=== PATIENT | female | born 1960 | race Caucasian/White ===

== ENCOUNTER 2017-08-02 07:55 | Emergency (ER) | payer SELFPAY ==
[~2017-08-02] VITALS: Ht 165.1 cm; Wt 71.2 kg
[~2017-08-02 07:55] MED LIST: LISI-420 PO; METF850T PO; METF850T4 PO; MIC5 PO; SIMV40TA1 PO; SITA100T8 PO
[2017-08-02 08:05] VITALS: BP 117/73
--- NOTE | 2017-08-02 08:12 | NUR ---
PATIENT AMBULATED TO BED 4.
--- NOTE | 2017-08-02 08:17 | NUR ---
REPORT GIVEN TO AUNDREA FIGUEROA
--- NOTE | 2017-08-02 08:18 | NUR ---
PATIENT PRESENTS TO ED WITH C/O N/V/D AND DIZZY X2 DAYS, HX OF DM, HTN. SKIN IS PINK/WARM/DRY; AAOX4 WITH EVEN AND STEADY GAIT; LUNGS CLEAR BL; HR EVEN AND REGULAR; PT DENIES ANY FEVER, CP, SOB, OR COUGH AT THIS TIME; DENIES PAIN, VSS; PATIENT POSITIONED FOR COMFORT; HOB ELEVATED; BEDRAILS UP X2; BED DOWN. ER MD MADE AWARE OF PT STATUS.
--- NOTE | 2017-08-02 08:30 | NUR ---
Patient being evaluated by physician at bedside.
[2017-08-02] MEDS ORDERED: NACL 0.9% 1,000 ML IV SCH (08:44)
[2017-08-02] MEDS ORDERED: MECLIZINE 25 MG TAB PO ONE (08:45)
[2017-08-02] MEDS ORDERED: ONDANSETRON 4 MG/2 ML VIAL IVP ONE (08:45)
[2017-08-02] MEDS ORDERED: PROMETHAZINE 25 MG/ML VIAL IM ONE (08:45)
--- NOTE | 2017-08-02 08:55 | NUR ---
PT OFF UNIT FOR CT SCAN
[2017-08-02 09:04] LABS: BASOPHILS % (AUTO) 0.4 % (0.0-2.0); EOSINOPHILS % (AUTO) 0.5 % (0.0-4.0); HEMATOCRIT 44.3 % (36-48); HEMOGLOBIN 14.6 g/dL (12.0-16.0); LYMPHOCYTES # (AUTO) 2.2 K/uL (2.5-16.5); LYMPHOCYTES % (AUTO) 28.6 % (20.5-51.1); MEAN CORPUSCULAR HEMOGLOBIN 29 pg (27-31); MEAN CORPUSCULAR HGB CONC 33 g/dL (33-37); MEAN CORPUSCULAR VOLUME 87.1 fL (80-94); MONOCYTES # (AUTO) 0.4 K/uL (0.8-1.0); MONOCYTES % (AUTO) 4.6 % (1.7-9.3); NEUTROPHILS % (AUTO) 65.9 % (42.2-75.2); PLATELET COUNT (AUTO) 229 K/uL (140-450); RED BLOOD CELL COUNT(AUTO) 5.08 MIL/uL (4.20-5.40); RED CELL DISTRIBUTION WIDTH 13.6 % (11.6-13.7); WHITE BLOOD COUNT (AUTO) 7.7 K/uL (4.8-10.8)
--- NOTE | 2017-08-02 09:11 | NUR ---
EKG DONE AT BEDSIDE.
[2017-08-02 09:16] LABS: APPEARANCE,URINE HAZY (CLEAR); BILIRUBIN,URINE NEGATIVE (NEGATIVE); BLOOD, URINE NEGATIVE (NEGATIVE); COLOR,URINE YELLOW (YELLOW); LEUKOCYTE ESTERASE ,URINE NEGATIVE (NEGATIVE); NITRITE, URINE POSITIVE (NEGATIVE); PH,URINE 5.5 (5.0-9.0); UGLUCOSE 3+ (NEGATIVE)
[2017-08-02 09:28] LABS: RBC,URINE 0-5 (RARE) /HPF (0-5); WBC,URINE 0-5 (RARE) /HPF (0-5)
[2017-08-02 09:31] LABS: ALBUMIN 3.7 g/dL (3.4-5.0); CARBON DIOXIDE 24.8 mmol/L (21-32); CREATININE 0.7 mg/dL (0.6-1.3); POTASSIUM 3.8 mmol/L (3.5-5.1); TOTAL BILIRUBIN 0.4 mg/dL (0.0-1.0)
[2017-08-02 09:44] LABS: PROTHROMBIN TIME 9.9 secs (10.8-13.4)
[2017-08-02] MEDS ORDERED: LEVOFLOXACIN 500 MG TAB PO ONE (10:05)
[2017-08-02 11:12] VITALS: BP 91/52
--- NOTE | 2017-08-02 11:12 | NUR ---
Patient discharged with v/s stable. Written and verbal after care instructions given and explained. Patient alert, oriented and verbalized understanding of instructions. Ambulatory with to car. All questions addressed prior to discharge. ID band removed. Patient advised to follow up with PMD. Rx of antivert and levaquin given. Patient educated on indication of medication including possible reaction and side effects. Opportunity to ask questions provided and answered.
== END 2017-08-02 11:12 | disposition home or self-care (01) ==
LOC: MED 07:55
DX: N39.0 Urinary tract infection, site not specified (principal); R42 Dizziness and giddiness; R11.0 Nausea; E11.9 Type 2 diabetes mellitus without complications; I10 Essential (primary) hypertension; Z79.84 Long term (current) use of oral hypoglycemic drugs; Z79.899 Other long term (current) drug therapy; Z88.0 Allergy status to penicillin; Z88.5 Allergy status to narcotic agent
CPT/HCPCS: 36415; 70450; 71045; 80053; 81001; 81025; 82150; 82948; 83690; 84484; 85025; 85610; 85730; 93005; 96361; 96372; 96374; 99285; J2405; J2550; J8597; Q0092

== ENCOUNTER 2021-06-08 10:25 | Emergency (ER) | payer OTHER ==
[~2021-06-08] VITALS: Ht 165.1 cm; Wt 72.6 kg
[~2021-06-08 10:25] MED LIST changes: +GLYB-200 PO; -LISI-420 PO; +METF-350 PO; -METF850T4 PO; -MIC5 PO; +[UNRECOGNIZED DRUG - CODE] PO
[2021-06-08 10:35] VITALS: BP 141/73
--- NOTE | 2021-06-08 10:39 | NUR ---
PT W/C ASSISTED TO BED 6
--- NOTE | 2021-06-08 11:10 | NUR ---
Note undone in EDM - 06/08/21 at 1111 by SURENDRA 60 Y/O BIB SELF WITH C/O RIGHT ANKLE AND FOOT PAIN. L ARM PAIN S/P FALLING. PAIN RATED 7/10. PT DENIES LOC, SOB, CHEST PAIN. PT DENIES TAKING MEDS FOR PAIN, PATIENT AMBULATORY WITH USE OF OWN CRUTCHES. MEDHX: DM, CHOLESTEROL ALLERGIES: PENICILLINS, MORPHINE
--- NOTE | 2021-06-08 11:11 | NUR ---
DR. ROMAN AT PT BEDSIDE
[2021-06-08] MEDS ORDERED: fentaNYL citrate 0.05 MG/ML VIAL IM ONE (11:20)
[2021-06-08] MEDS ORDERED: ONDANSETRON 4 MG ODT PO ONE (11:20)
--- NOTE | 2021-06-08 11:21 | NUR ---
XR AT PT BEDSIDE
--- NOTE | 2021-06-08 11:29 | NUR ---
PT TAKEN TO CT VIA CLAUDY
--- NOTE | 2021-06-08 12:22 | NUR ---
PT DROVE HERSELF TO ED, PT MADE AWARE SHE WILL NOT BE ABLE TO DRIVE AFTER MEDICATION GIVEN. PT STATES SHE WILL CALL SISTER TO PICK HER UP
--- NOTE | 2021-06-08 13:06 | NUR ---
Patient discharged with v/s stable. Written and verbal after care instructions given and explained. Patient verbalized understanding. Wheel Chair Assisted with to car. All questions addressed prior to discharge. Advised to follow up with PMD.
[2021-06-08 13:22] VITALS: BP 141/73
== END 2021-06-08 13:06 | disposition home or self-care (01) ==
LOC: MED 10:25
DX: S93.401A Sprain of unspecified ligament of right ankle, initial encounter (principal); M25.551 Pain in right hip; M25.561 Pain in right knee; E11.9 Type 2 diabetes mellitus without complications; I10 Essential (primary) hypertension; Z79.899 Other long term (current) drug therapy; Z88.0 Allergy status to penicillin; Z88.5 Allergy status to narcotic agent; Z79.84 Long term (current) use of oral hypoglycemic drugs; W18.30XA Fall on same level, unspecified, initial encounter; Y93.89 Activity, other specified; Y92.89 Other specified places as the place of occurrence of the external cause; Y99.8 Other external cause status
CPT/HCPCS: 72192; 73552; 73590; 73620; 96372; 99284; J3010; Q0162